=== PATIENT | female | born 1955 | race Caucasian/White ===

== ENCOUNTER 2017-10-24 18:02 | Emergency (ER) | payer MEDICARE, MEDICAID ==
[2017-10-24 18:09] VITALS: BP 157/83
[2017-10-24] MEDS ORDERED: KETOROLAC 30 MG/1 ML IM ONE (19:00)
[2017-10-24] MEDS ORDERED: KETOROLAC 30 MG/1 ML ONE (19:03)
[2017-10-24] MEDS ORDERED: PLEASE ENTER HEIGHT AND WEIGHT MC SCH (19:30)
== END 2017-10-24 19:39 | disposition home or self-care (01) ==
LOC: ED 19:33
DX: M25.562 Pain in left knee (principal); M19.90 Unspecified osteoarthritis, unspecified site; I10 Essential (primary) hypertension; M41.9 Scoliosis, unspecified
CPT/HCPCS: 73564; 96372; 99284; J1885

== ENCOUNTER 2021-03-26 15:36 | Emergency (ER) | payer MEDICARE ==
[~2021-03-26] VITALS: Ht 162.6 cm; Wt 72.5 kg
--- NOTE | 2021-03-26 16:05 | NUR ---
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
--- NOTE | 2021-03-26 16:35 | NUR ---
assumed care of pt. pt here for R knee pain x1 month. pt reports that she fell in the iver and hi her knee. pt reports that she has been seen previosly for same and that she has had not relief of pain with pain medications pt leg elevated and ice pack applied. pt positioning and lights dimmed for comort. SO at bedside
--- NOTE | 2021-03-26 17:00 | NUR ---
pt in RAD
--- NOTE | 2021-03-26 17:38 | NUR ---
Dr Brian at bedside for recheck
--- NOTE | 2021-03-26 18:13 | NUR ---
knee immobilizer placed. well tolerated. pt given education regarding use and proper placement
[2021-03-26 18:14] VITALS: BP 119/46
== END 2021-03-26 18:17 | disposition home or self-care (01) ==
LOC: ED 16:59
DX: S83.411A Sprain of medial collateral ligament of right knee, initial encounter (principal); S80.01XA Contusion of right knee, initial encounter; I10 Essential (primary) hypertension; J45.909 Unspecified asthma, uncomplicated; M19.90 Unspecified osteoarthritis, unspecified site; X58.XXXA Exposure to other specified factors, initial encounter; Y93.89 Activity, other specified; Y92.89 Other specified places as the place of occurrence of the external cause; Y99.8 Other external cause status
CPT/HCPCS: 29505; 99283